=== PATIENT | male | born 1985 | race Caucasian/White ===

== ENCOUNTER 2023-04-08 23:18 | Emergency (ER) | payer BC ==
[~2023-04-08] VITALS: Ht 185.4 cm; Wt 77.1 kg
--- NOTE | 2023-04-09 | NUR ---
BIBSELF FROM HOME C/O POSSIBLE ALLERGIC REACTION TO FLONASE TODAY. GEN BODY ITCHINESS WITH TINGLING SENSATION ON THE MOUTH. PATIENT IS SITTING BESIDE BED. AAOX4. ABLE TO MAKE NEEDS KNOWN. VITALS CHECKED
[2023-04-09 00:47] VITALS: BP 119/72
--- NOTE | 2023-04-09 00:47 | NUR ---
Patient discharged to home in stable condition. Written and verbal after care instructions given. Patient verbalizes understanding of instruction.
== END 2023-04-09 00:51 | disposition home or self-care (01) ==
LOC: ER 23:20
DX: L29.9 Pruritus, unspecified (principal); T49.6X5A Adverse effect of otorhinolaryngological drugs and preparations, initial encounter; Y92.89 Other specified places as the place of occurrence of the external cause